=== PATIENT | male | born 1970 | race Asian ===

== ENCOUNTER 2016-08-11 21:19 | Emergency (ER) | payer OTHER ==
[~2016-08-11] VITALS: Ht 170.2 cm; Wt 63.6 kg
[2016-08-11 21:24] VITALS: BP 113/73; PULSE 87; RESP 16; O2SAT 93
--- NOTE | 2016-08-11 22:46 | ED.REPORT ---
HPI-Hand Prob/Inj Date of Service August 11, 2016 ED Provider: Berhane Cortez MD A 46 year old male with no pertinent medical history presents to the ED complaining of a laceration to his right index finger. The pt was using a sharp knife at approximately 19:00 this evening when the blade slipped and he cut his finger. No other trauma is reported. Nursing Notes Stated Complaint: LACERATION TO RIGHT INDEX FINGER Chief Complaint: Extremity Trauma Nursing Notes Reviewed: Yes Allergies: Coded Allergies: No Known Allergies (Unverified Allergy, Unknown, 05/29/14) General Time Seen by Provider: 22:45 Chief Complaint Hand injury right Hx Obtained From: Patient Arrived By: Walk-in Onset Occurred: 1 - 4 hours ago Symptom Duration: Since onset Recent Healthcare: No recent doctor visit, No recent hospitalization Similar Sx Previous: No Past Medical History Past Medical History Chronic back pain Past Surgical History none reported Family History Reports: Stroke Smoking History Unknown if Ever Smoker Social History Alcohol Use: Denies alcohol use Drug Use: Denies drug use Other Social History: Good social support, Occupation works in a restaurant Ambulatory Status Independent Review of Systems Musculoskeletal: Reports: Extremity pain (right hand), Denies: Back pain, Neck pain Skin: Denies Rash Complete sys rev & neg: except as marked. Respiratory: Denies: Non-productive cough, Shortness of breath Cardiovascular: Denies: Chest pain GI: Denies: Abdominal pain Physical Exam Initial Vital Signs Vital Signs (First) Date Time Temp Pulse Resp B/P Pulse Ox O2 Delivery O2 Flow Rate FiO2 08/11/16 21:24 36.3 87 16 113/73 93 Room Air Initial VS: Reviewed, Vital signs normal Wrist / Hand: Full range of motion, Neurologic intact, Vascular intact 2.1 cm flap laceration on the left second digit, extending through cuticle nondisplaced diagonal laceration at the base of the nail no tendon involvement General/Constitutional: Awake, Alert Skin: Color NL, No rash, Warm, Dry Neurologic: Oriented X3, Speech NL, No motor deficits, No sensory deficits Head / Eyes: Atraumatic, Normocephalic, PERRL, EOMI ENT: Atraumatic, Airway patent, Mucous membranes moist Neck: Atraumatic, Supple, Full range of motion Respiratory / Chest: Atraumatic, No respiratory distress Cardiovascular: Heart rate NL, Regular rhythm, Heart sounds NL Abdomen: Atraumatic Back: Atraumatic, Full range of motion Upper Extremity / MS: Atraumatic, Full range of motion Lower Extremity / Pelvis / MS: Atraumatic, Full range of motion Psychiatric: Affect NL, Mood NL Procedures Laceration Management Time: 22:50 Procedure Performed by: ED physician Consent / Setup / Site Prep: Informed consent provided, Consent from patient , Time-out performed, Hand hygiene observed, Stand sterile technique Location of Wound: left index finger Wound Length: 2 cm (2.1) Local Anesthesia: Lidocaine 1% Digital Block: Yes Digit Involved: Index finger left Wound Preparation: Normal saline Debridement: None Irrigation: Copious Foreign Body Explore / Removal: Explored for foreign body Repair Skin: ___ O (5), Nylon # Sutures - Skin: 5 Suture Technique: Simple Post-Procedure / Complications: Antibiotic oint applied, Dressing applied, No complications, Condition improved, Tolerated procedure well, Patient stable Re-Eval/Medical Decision Med Decision/Clinical Course 46-year-old male with laceration through the cuticle. There is a partial- thickness laceration of the nail. There is no tendon involvement. The wound was closed without difficulty. Follow-up as needed. Source of Hx: Old records Re-Evaluation/Progress : Time of Eval: 22:50 Patient Status: Condition improved Re-Evaluation/Progress Note: Pt rechecked and laceration management is performed without complication. The diagnosis and plan for discharge are discussed. The pt understands and agrees with the plan. All questions are addressed at this time. Counseled Regarding: Diagnosis, Need for follow-up, When/why to return to ED Discharge & Departure Primary Impression: Finger laceration with complication Encounter type: initial encounter Qualified Code: S61.219A - Laceration without foreign body of unspecified finger without damage to nail, initial encounter Disposition: Home Discharge Condition All VS Reviewed: Yes Condition: Stable Patient Instructions: Finger Laceration (ED) Additional Instructions: Okay to shower, removed the Band-Aid prior to showering and then reapply afterwards. Follow-up as needed if any evidence of infection. Stitches out in 10 days. Referrals: Angelita Lezama PA-C (PCP) Scribe Attestation Portions of this note were transcribed by Jenniffer De Leon. I, Dr. Cortez personally performed the history, physical exam and medical decision-making; I reviewed and confirmed the accuracy of the information in the transcribed note. Signed by: Chip Doss, 08/11/16 and 2313. copies to: Angelita Lezama PA-C, Howard L MD August 11, 2016 22:46 JENNIFFER DE LEON August 11, 2016 22:58
[2016-08-11] MEDS ORDERED: TdaP Vaccine 0.5 mL Inj IM ONE (22:50)
[2016-08-11] MEDS ORDERED: Lidocaine 1% 50 mL Inj NERVEBLOCK ONE (22:50)
[2016-08-11 23:24] VITALS: BP 116/72; PULSE 80; RESP 16; O2SAT 97
== END 2016-08-11 23:25 | disposition home or self-care (01) ==
LOC: SED 21:19
DX: S61.311A Laceration without foreign body of left index finger with damage to nail, initial encounter (principal); W26.0XXA Contact with knife, initial encounter; Y93.89 Activity, other specified; Y92.009 Unspecified place in unspecified non-institutional (private) residence as the place of occurrence of the external cause; Y99.8 Other external cause status; Z23 Encounter for immunization